=== PATIENT | male | born 1970 | race Caucasian/White ===

== ENCOUNTER 2020-08-17 08:27 | Emergency (ER) | payer SELFPAY ==
--- NOTE | 2020-08-17 09:19 | EDM.PDOC ---
ED HPI GENERAL MEDICAL PROBLEM - General Chief Complaint: Upper Extremity Injury/Pain Stated Complaint: LEFT ARM NUMB Time Seen by Provider: 08/17/20 09:00 Source of Information: Reports: Patient, RN. Denies: Old Records History Limitations: Reports: Other (no old records) - History of Present Illness INITIAL COMMENTS - FREE TEXT/NARRATIVE: 50 yo male 2 ppd smoker presents with increased coolness of his LUE from the humerus area down that began last night. He has no pain in that arm. The arm gets tired quickly with use. He has mild numbness of that arm too that waxes and wanes. He has no idea about his cholesterol level or blood sugar. He does not have a primary care provider. He denies neck pain or increased L arm sx's with coughing. He has no weakness of that arm. He has not had any slurred speech, trouble walking, SPIVEY or dizziness. No coordination concerns. Onset: Sudden Onset Date: 08/16/20 Onset Time: 19:00 Duration: Waxing/Waning Location: Reports: Upper Extremity, Left Quality: Reports: Other (colder than normal) Severity: Mild Improves with: Reports: Other (unsure) Worsens with: Reports: Other (unsure) Context: Reports: Other (See HPI) Associated Symptoms: Reports: Other (waxing and waning mild numbness of the L arm/hand) Treatments FINAL FINISHER FORGING DIES: Reports: Other (see below) (none) - Related Data Allergies Allergy/AdvReac Type Severity Reaction Status Date / Time No Known Allergies Allergy Verified 08/17/20 08:51 Home Meds: Home Meds NK [No Known Home Meds] 07/08/15 [History] Past Medical History Genitourinary History: Reports: Renal Calculus, Other (See Below) Other Genitourinary History: thinks has passed kidney stones in past Musculoskeletal History: Reports: Fracture - Infectious Disease History Infectious Disease History: Reports: Chicken Pox, Measles Social & Family History - Tobacco Use Tobacco Use Status *Q: Heavy Tobacco User Years of Tobacco use: 32 Packs/Tins Daily: 2 - Caffeine Use Caffeine Use: Reports: Soda - Recreational Drug Use Recreational Drug Use: Yes Recreational Drug Type: Reports: Marijuana/Hashish Recreational Drug Use Frequency: Daily Review of Systems - Review of Systems Review Of Systems: See Below Constitutional: Reports: No Symptoms Respiratory: Reports: No Symptoms Cardiovascular: Reports: No Symptoms Musculoskeletal: Reports: No Symptoms Skin: Reports: Other (skin cool from elbow down on L arm) Neurological: Reports: Numbness (waxing and waning mild numbnes of the LUE). Denies: Confusion, Dizziness, Headache, Trouble Speaking, Difficulty Walking, Weakness, Change in Speech, Gait Disturbance Psychiatric: Reports: No Symptoms ED EXAM, GENERAL - Physical Exam Exam: See Below Exam Limited By: No Limitations General Appearance: Alert, WD/WN, No Apparent Distress Eye Exam: Bilateral Eye: EOMI, Normal Inspection, PERRL Ears: Normal External Exam, Normal Canal, Hearing Grossly Normal Ear Exam: Bilateral Ear: Auricle Normal, Canal Normal Nose: Normal Inspection, No Blood Throat/Mouth: Normal Inspection, Normal Lips, Normal Oropharynx, Normal Voice, No Airway Compromise Head: Atraumatic, Normocephalic Neck: Normal Inspection Respiratory/Chest: No Respiratory Distress, Lungs Clear, Normal Breath Sounds, No Accessory Muscle Use Cardiovascular: Regular Rate, Rhythm, No Edema. No: Normal Peripheral Pulses (radial pulse non-palpable L wrist. R radial is weak. Bilat post tibialis pulses are not palpable. Dorsalis pedis pulses are OK. ) Peripheral Pulses: 0: Radial (L), Posterior Tibial (L), Posterior Tibial (R), 2+: Radial (R), Dorsalis Pedis (L), Dorsalis Pedis (R) Extremities: Normal Inspection, Normal Range of Motion, Non-Tender, No Pedal Edema. No: Pedal Edema Neurological: Alert, Oriented, CN II-XII Intact, Normal Cognition, No Motor/Sensory Deficits, Other (strength is equal in all extremities, Tinnel's and Phalen's test both neg.) Psychiatric: Normal Affect, Normal Mood Skin Exam: Dry, Intact, Normal Color, No Rash, Cool (L arm from hand to elbow is cooler than the RUE. ). No: Increased Warmth, Pallor (none noted) Course - Vital Signs Last Recorded V/S: Last Vital Signs Temp 36.3 C 08/17/20 08:48 Pulse 68 08/17/20 08:48 Resp 15 08/17/20 08:48 BP 132/94 H 08/17/20 08:48 Pulse Ox 97 08/17/20 08:48 - Orders/Labs/Meds Orders: Active Orders 24 hr Category Date Time Status Cardiac Monitoring [RC] .As Directed Care 08/17/20 09:27 Active Heparin Sodium/D5W [Heparin 25,000 Units in D5W 500 ML] Med 08/17/20 12:45 Ordered 25,000 units in 500 ml IV TITRATE Medication Orders Heparin Sodium/Dextrose (Heparin 25,000 Units In D5w 500 Ml) 25,000 units in 500 mls @ 20 mls/hr IV TITRATE DEANNE Labs: Laboratory Tests 08/17/20 Range/Units 09:31 Sodium 142 (140-148) mmol/L Potassium 4.4 (3.6-5.2) mmol/L Chloride 106 (100-108) mmol/L Carbon Dioxide 25 (21-32) mmol/L Anion Gap 11.1 (5.0-14.0) mmol/L BUN 24 H (7-18) mg/dL Creatinine 1.3 (0.8-1.3) mg/dL Est Cr Clr Drug Dosing 65.77 mL/min Estimated GFR (MDRD) 58 L (>60) Glucose 104 (74-106) mg/dL Calcium 8.9 (8.5-10.1) mg/dL Triglycerides 77 (15-150) mg/dL Cholesterol 183 (0-200) mg/dL LDL Cholesterol Direct 106 H (0-100) mg/dL HDL Cholesterol 47 (40-60) mg/dL Meds: Medications Generic Name Dose Route Start Last Admin Trade Name Freq PRN Reason Stop Dose Admin Heparin Sodium/Dextrose 25,000 units in 500 mls @ 20 mls/hr 08/17/20 12:45 Heparin 25,000 Units In D5w 500 Ml IV TITRATE DEANNE Discontinued Medications Generic Name Dose Route Start Last Admin Trade Name Freq PRN Reason Stop Dose Admin Heparin Sodium (Porcine) 5,000 units 08/17/20 12:41 Heparin Sodium 5,000 Units/Ml Vial IVPUSH 08/17/20 12:42 ONETIME ONE Sodium Chloride 100 mls @ 3.5 mls/sec 08/17/20 10:15 08/17/20 11:10 Normal Saline IV 08/17/20 10:16 4 mls/sec ASDIRECTED DEANNE Administration Iopamidol 100 ml 08/17/20 10:15 08/17/20 11:11 Iopamidol 755 Mg/Ml 100 Ml Bottle IV 08/17/20 10:16 100 ml . DIRECTED DEANNE Administration Sodium Chloride 10 ml 08/17/20 10:14 08/17/20 11:10 Sodium Chloride 0.9% 10 Ml Syringe FLUSH 08/17/20 10:15 10 ml ONETIME PRN Administration per radiology protocol - Radiology Interpretation Free Text/Narrative:: angio LUE-prox brachial artery clot CT Results Date: 08/17/20 Departure - Departure Time of Disposition: 13:00 Disposition: DC/Tfer to Acute Hospital 02 Condition: Fair Clinical Impression: Embolus of brachial artery - Discharge Information *PRESCRIPTION DRUG MONITORING PROGRAM REVIEWED*: Not Applicable *COPY OF PRESCRIPTION DRUG MONITORING REPORT IN PATIENT KEELY: Not Applicable Referrals: PCP,None [Primary Care Provider] - Forms: ED Department Discharge Sepsis Event Note (ED) - Evaluation Sepsis Screening Result: No Definite Risk - Focused Exam Vital Signs: Vital Signs Temp Pulse Resp BP Pulse Ox 08/17/20 08:48 36.3 C 68 15 132/94 H 97 08/17/20 08:46 36.3 C 68 15 132/94 H 97 - My Orders Last 24 Hours: My Active Orders 08/17/20 09:27 Cardiac Monitoring [RC] .As Directed 08/17/20 12:45 Heparin Sodium/D5W [Heparin 25,000 Units in D5W 500 ML] 25,000 units in 500 ml IV TITRATE - Assessment/Plan Last 24 Hours: My Active Orders 08/17/20 09:27 Cardiac Monitoring [RC] .As Directed 08/17/20 12:45 Heparin Sodium/D5W [Heparin 25,000 Units in D5W 500 ML] 25,000 units in 500 ml IV TITRATE
[2020-08-17] MEDS ORDERED: Sodium Chloride 0.9% 10 ML Syringe FLUSH PRN (10:14)
[2020-08-17] MEDS ORDERED: Sodium Chloride 0.9% 100 ML IV SCH (10:15)
[2020-08-17] MEDS ORDERED: Iopamidol 755 Mg/ML 100 ML Bottle IV SCH (10:15)
[2020-08-17] MEDS ORDERED: Heparin Sodium 5,000 Units/ML Vial IVPUSH ONE (12:41)
[2020-08-17] MEDS ORDERED: Heparin Sodium/D5W 25,000 UNITS/500 ML BAG IV SCH (12:45)
--- NOTE | 2020-08-17 12:49 | CT ---
Ang Upper Extremity Lt CLINICAL HISTORY: Diminished pulses left upper extremity TECHNIQUE: Thin section axial contiguous tomographic sections were taken through the chest after bolus IV iodinated contrast administration. Coronal and sagittal images were reconstructed. Auto dosage reduction and iterative reconstruction techniques employed. FINDINGS: There is a focal filling defect in the aortic arch near the origin of the left subclavian artery measuring 5 x 14 mm. This may represent under my plaque or intimal flap. No other evidence aortic dissection is identified. At the origin of the thyrocervical branch of the left subclavian artery there is a curvilinear defect and a linear filling defect which appears to be a dissection extending distally. There is a mild smooth stenosis of the true lumen. There is an abrupt termination of the mid left brachial artery with some minimal flow extending distally. This appears to be a large intraluminal thrombus. There is reconstitution just above the elbow. The radial artery is occluded at its origin. The ulnar artery is patent to the wrist. There is flow to the palmar arch. IMPRESSION: Curvilinear filling defect at the lateral wall of the aortic arch at the margin of the origin of the left subclavian artery. There is a cyst second to the curvilinear filling defect in the more distal left subclavian artery near the thyrocervical trunk with the mild to moderate smooth stenosis. This appears to be an intimal flap. There is no obvious visualized intima between the aortic and subclavian filling defects. Near complete occluding thrombus in the mid brachial artery which is likely embolic from the more proximal subclavian lesion. 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
[2020-08-17 13:04] VITALS: BP 132/86; PULSE 74
== END 2020-08-17 14:07 ==
LOC: JP.ED 08:27
DX: I74.2 Embolism and thrombosis of arteries of the upper extremities (principal); Z72.0 Tobacco use
CPT/HCPCS: 36415; 73206; 80048; 80061; 96365; 99285; J1644; Q9967

== ENCOUNTER 2022-02-05 19:39 | Emergency (ER) | payer SELFPAY ==
[2022-02-05 20:13] LABS: ESTIMATED GFR 60 mL/min (>60)
[2022-02-05] MEDS ORDERED: Heparin Sodium 5,000 Units/ML Vial IVPUSH ONE (20:50)
[2022-02-05] MEDS ORDERED: Heparin Sodium/D5W 25,000 UNITS/500 ML BAG IV SCH (21:00)
[2022-02-05] MEDS ORDERED: Sodium Chloride 0.9% 75 ML IV SCH (22:00)
[2022-02-05] MEDS ORDERED: Iopamidol 755 Mg/ML 100 ML Bottle IV SCH (22:00)
[2022-02-05 22:08] VITALS: BP 125/83; PULSE 72
== END 2022-02-05 22:30 ==
LOC: JP.ED 19:39
DX: I74.2 Embolism and thrombosis of arteries of the upper extremities (principal); Z20.822 Contact with and (suspected) exposure to COVID-19
CPT/HCPCS: 36415; 73206; 80053; 83605; 85025; 85610; 85730; 87635; 96365; 96375; 99285; J1644; J3490; Q9967; U0002

== ENCOUNTER 2022-07-30 20:45 | Emergency (ER) | payer MEDICAID ==
[2022-07-30 21:02] VITALS: BP 116/80; PULSE 106
[2022-07-30 22:14] LABS: BASOPHILS ABSOLUTE AUTO 0.03 K/uL (0.00-0.10); BASOPHILS PERCENT AUTO 0.4 % (0.1-1.3); HEMATOCRIT 45.7 % (38.4-49.7); IMMATURE GRAN ABSOLUTE AUTO 0.03 K/uL (0.00-0.23); IMMATURE GRAN PERCENT AUTO 0.4 % (0.0-0.7); LYMPHOCYTES ABSOLUTE AUTO 0.54 K/uL (0.8-3.3); LYMPHOCYTES PERCENT AUTO 7.3 % (11.4-47.7); MEAN CORPUSCULAR HEMOGLOBIN 31.1 pg (31.6-35.5); MEAN CORPUSCULAR VOLUME 88.7 fL (81.4-99.0); MONOCYTES ABSOLUTE AUTO 0.41 K/uL (0.20-0.90); MONOCYTES PERCENT AUTO 5.5 % (3.3-12.6); NEUTROPHILS PERCENT AUTO 86.4 % (40.0-78.1); PLATELET COUNT,PLT 190 K/uL (130-375); RED BLOOD CELL COUNT 5.15 M/uL (4.14-5.76); WHITE BLOOD CELL COUNT,WBC 7.4 K/uL (3.2-11.0)
[2022-07-30 22:17] LABS: ALANINE AMINOTRANSFERASE,ALT 35 U/L (12-78); ALKALINE PHOSPHATASE 95 U/L (46-116); ASPARTATE AMNIOTRANSFERASE,AST 22 U/L (15-37); BILIRUBIN TOTAL 0.3 mg/dL (0.2-1.0); CARBON DIOXIDE,CO2 24 mmol/L (21-32); CHLORIDE,CL 102 mmol/L (100-108); POTASSIUM,K 3.9 mmol/L (3.6-5.2); PROTEIN TOTAL,TP 7.2 g/dL (6.4-8.2); SODIUM,NA 136 mmol/L (140-148)
[2022-07-30 22:22] LABS: ALBUMIN 3.5 g/dL (3.4-5.0); BLOOD UREA NITROGEN,BUN 14 mg/dL (7-18); CALCIUM 8.6 mg/dL (8.5-10.1); CREATININE 1.3 mg/dL (0.8-1.3); EST CRCL DRUG DOSING (CG) 64.31 mL/min; ESTIMATED GFR 66 mL/min (>60); GLUCOSE RANDOM 109 mg/dL (74-106)
[2022-07-30 22:23] LABS: ANION GAP 13.9 mmol/L (5.0-14.0)
[2022-07-30 22:45] LABS: LYME AB IgM Negative (Negative)
[2022-07-30 22:47] LABS: LYME AB IgG Negative (Negative)
[2022-08-03 15:15] LABS: BABESIA MICROTI IGG <1:10 (Neg:<1:10); BABESIA MICROTI IGM <1:10 (Neg:<1:10)
== END 2022-07-30 22:40 | disposition home or self-care (01) ==
LOC: JP.ED 20:45
DX: R50.9 Fever, unspecified (principal)
CPT/HCPCS: 36415; 80053; 85025; 86618; 86666; 86753; 99283